=== PATIENT | male | born 1950 | race Caucasian/White ===

== ENCOUNTER → 2017-04-22 | Outpatient (CLI) | payer OTHER ==
[~2017-04-22] MED LIST: CARDIZEM CD120 MG; KETO10TA2 PO; SYNTHROID75 MCG
== END | disposition home or self-care (01) ==
LOC: NUCLEAR 12:53
DX: M81.0 Age-related osteoporosis without current pathological fracture (principal); I10 Essential (primary) hypertension; E03.8 Other specified hypothyroidism; E55.9 Vitamin D deficiency, unspecified; E78.9 Disorder of lipoprotein metabolism, unspecified

== ENCOUNTER 2017-09-01 10:16 | Emergency (ER) | payer OTHER ==
[~2017-09-01] VITALS: Ht 172.7 cm; Wt 83.9 kg
[2017-09-01] MEDS ORDERED: ASPIR 8181 MG (10:43)
[2017-09-01] MEDS ORDERED: ZITHROMAX500 MG PO (13:45)
== END 2017-09-01 13:52 | disposition home or self-care (01) ==
LOC: ER 10:16
DX: B34.9 Viral infection, unspecified (principal); R42 Dizziness and giddiness; J32.8 Other chronic sinusitis

== ENCOUNTER 2017-10-18 09:15 | Outpatient (CLI) | payer OTHER ==
[~2017-10-18 09:15] MED LIST changes: +ASPIR 8181 MG; +ZITHROMAX500 MG PO
== END 2017-10-18 09:49 | disposition home or self-care (01) ==
LOC: SONOGRAMA 09:15
DX: E04.1 Nontoxic single thyroid nodule (principal)

== ENCOUNTER 2017-11-03 08:49 | Outpatient (CLI) | payer OTHER | END 2017-11-03 08:50 | disposition home or self-care (01) | LOC: LAB 08:49 | DX: E56.1 Deficiency of vitamin K (principal) ==

== ENCOUNTER 2017-11-03 09:30 | Outpatient (CLI) | payer OTHER | END 2017-11-03 09:33 | disposition home or self-care (01) | LOC: SONOGRAMA 09:30 | DX: M25.512 Pain in left shoulder (principal) ==

== ENCOUNTER 2017-11-25 09:35 | Outpatient (CLI) | payer OTHER | END 2017-11-25 12:50 | disposition home or self-care (01) | LOC: RAD 501 09:35 | DX: M25.561 Pain in right knee (principal); M25.562 Pain in left knee; M25.551 Pain in right hip ==

== ENCOUNTER 2018-02-11 08:47 | Outpatient (CLI) | payer OTHER | END 2018-02-11 08:50 | disposition home or self-care (01) | LOC: LAB 08:47 | DX: E03.8 Other specified hypothyroidism (principal); E55.9 Vitamin D deficiency, unspecified; E78.89 Other lipoprotein metabolism disorders; N41.1 Chronic prostatitis; I11.9 Hypertensive heart disease without heart failure; B35.3 Tinea pedis ==

== ENCOUNTER 2018-08-19 07:47 | Emergency (ER) | payer OTHER ==
[~2018-08-19] VITALS: Ht 167.6 cm; Wt 83.5 kg
== END 2018-08-19 16:15 | disposition home or self-care (01) ==
LOC: ER 07:47 → CPU-OBS 07:49 → ER 07:49
DX: R07.89 Other chest pain (principal)

== ENCOUNTER 2018-10-07 07:31 | Outpatient (CLI) | payer OTHER | END 2018-10-07 07:36 | disposition home or self-care (01) | LOC: NUCLEAR 07:31 | DX: I11.9 Hypertensive heart disease without heart failure (principal); R07.89 Other chest pain; I25.10 Atherosclerotic heart disease of native coronary artery without angina pectoris | CPT/HCPCS: 78452; 93017; A9500 ==

== ENCOUNTER 2018-12-05 08:13 | Outpatient (CLI) | payer OTHER | END 2018-12-05 14:21 | disposition home or self-care (01) | LOC: SONOGRAMA 08:13 | DX: K76.0 Fatty (change of) liver, not elsewhere classified (principal) ==

== ENCOUNTER 2019-03-14 13:39 | Emergency (ER) | payer OTHER ==
[~2019-03-14] VITALS: Ht 165.1 cm; Wt 81.6 kg
[2019-03-14] MEDS ORDERED: DILTIAZEM ER180 M3 PO (13:55)
[2019-03-14] MEDS ORDERED: OSTERA TABLET1 EACH PO (13:56)
[2019-03-14] MEDS ORDERED: LIPITOR20 MG PO (13:56)
[2019-03-14] MEDS ORDERED: TAMS0.4C PO ×2 (13:56→13:57)
[2019-03-14] MEDS ORDERED: FLONASE16 GM NS (13:57)
== END 2019-03-14 16:17 | disposition home or self-care (01) ==
LOC: ER 13:39
DX: J32.8 Other chronic sinusitis (principal)

== ENCOUNTER 2019-04-18 09:05 | Outpatient (CLI) | payer OTHER ==
[~2019-04-18 09:05] MED LIST changes: +DILTIAZEM ER180 M3 PO; +FLONASE16 GM NS; +LIPITOR20 MG PO; +OSTERA TABLET1 EACH PO; +TAMS0.4C PO
== END 2019-04-18 09:22 | disposition home or self-care (01) ==
LOC: NUCLEAR 09:05
DX: M81.0 Age-related osteoporosis without current pathological fracture (principal); N41.1 Chronic prostatitis; E55.9 Vitamin D deficiency, unspecified; E78.3 Hyperchylomicronemia; E78.49 Other hyperlipidemia; R07.89 Other chest pain; E11.65 Type 2 diabetes mellitus with hyperglycemia; R79.89 Other specified abnormal findings of blood chemistry; E03.8 Other specified hypothyroidism; E78.89 Other lipoprotein metabolism disorders; I11.9 Hypertensive heart disease without heart failure; I25.111 Atherosclerotic heart disease of native coronary artery with angina pectoris with documented spasm

== ENCOUNTER 2019-11-06 13:49 | Emergency (ER) | payer OTHER ==
[~2019-11-06] VITALS: Ht 170.2 cm; Wt 81.6 kg
== END 2019-11-06 19:58 | disposition home or self-care (01) ==
LOC: ER 13:49 → CPU-OBS 14:02 → ER 19:58
DX: R12 Heartburn (principal); R07.89 Other chest pain

== ENCOUNTER 2019-12-05 07:11 | Outpatient (CLI) | payer OTHER | END 2019-12-05 07:19 | disposition home or self-care (01) | LOC: SONOGRAMA 07:11 → MAMO-SONO 07:15 → SONOGRAMA 07:19 | DX: K76.0 Fatty (change of) liver, not elsewhere classified (principal) ==

== ENCOUNTER → 2021-03-13 07:50 | Outpatient (CLI) | payer OTHER | END | disposition home or self-care (01) | LOC: LAB 07:50 | PROVIDERS: ATTEND Internal Medicine | DX: I11.9 Hypertensive heart disease without heart failure (principal); N41.1 Chronic prostatitis; E55.9 Vitamin D deficiency, unspecified; E78.5 Hyperlipidemia, unspecified ==

== ENCOUNTER 2021-07-08 12:19 | Emergency (ER) | payer OTHER ==
[~2021-07-08] VITALS: Ht 170.2 cm; Wt 83.9 kg
[2021-07-08] MEDS ORDERED: TOPROL XL100 M1 (13:15)
[2021-07-08] MEDS ORDERED: TOPROL XL50 M1 (13:15)
== END 2021-07-08 18:14 | disposition home or self-care (01) ==
LOC: ER 12:19
DX: U07.1 COVID-19 (principal); I10 Essential (primary) hypertension

== ENCOUNTER → 2022-05-29 | Outpatient (CLI) | payer OTHER ==
[~2022-05-29] MED LIST changes: +TOPROL XL100 M1; +TOPROL XL50 M1
== END | disposition home or self-care (01) ==
LOC: SONOGRAMA 07:30
DX: K76.0 Fatty (change of) liver, not elsewhere classified (principal)

== ENCOUNTER 2022-07-10 07:42 | Outpatient (CLI) | payer OTHER | END 2022-07-10 07:47 | disposition home or self-care (01) | LOC: SONOGRAMA 07:42 | PROVIDERS: ATTEND Internal Medicine Endocrinology, Diabetes & Metabolism | DX: E04.2 Nontoxic multinodular goiter (principal); R59.0 Localized enlarged lymph nodes ==

== ENCOUNTER 2022-07-16 12:53 | Outpatient (CLI) | payer OTHER | END 2022-07-16 12:56 | disposition home or self-care (01) | LOC: NUCLEAR 12:53 | PROVIDERS: ATTEND Internal Medicine Endocrinology, Diabetes & Metabolism | DX: M85.89 Other specified disorders of bone density and structure, multiple sites (principal); Z13.820 Encounter for screening for osteoporosis ==

== ENCOUNTER 2023-01-09 07:53 | Emergency (ER) | payer OTHER ==
[~2023-01-09] VITALS: Ht 172.7 cm; Wt 83.9 kg
[2023-01-09 10:07] LABS: HEMATOCRIT 41.9 % (39.0-48.0); HEMOGLOBIN 13.6 g/dL (13-16.00); MEAN CORPUSCULAR HEMOGLOBIN 28.6 pg (27.00-32.0); MEAN CORPUSCULAR HGB CONC 32.5 g/dl (32.0-36.0); PLATELET COUNT 138 K/uL (150-450); RED BLOOD COUNT 4.76 M/uL (4.00-6.00); RED CELL DISTRIBUTION WIDTH 13.4 % (11.5-14.5)
[2023-01-09 10:15] LABS: CALCIUM 9.3 mg/dL (8.5-10.1); CREATININE SERUM 0.88 mg/dL (0.70-1.30); GFR 84.65; POTASSIUM 4.62 mEq/L (3.5-5.1)
== END 2023-01-09 10:50 | disposition home or self-care (01) ==
LOC: ER 07:53
PROVIDERS: General Practice
DX: R07.89 Other chest pain (principal); I10 Essential (primary) hypertension

== ENCOUNTER 2024-01-13 07:14 | Outpatient (CLI) | payer OTHER | END 2024-01-13 07:19 | disposition home or self-care (01) | LOC: SONOGRAMA 07:14 | PROVIDERS: ATTEND Urology | DX: N40.0 Benign prostatic hyperplasia without lower urinary tract symptoms (principal) ==

== ENCOUNTER 2024-07-27 12:39 | Outpatient (CLI) | payer OTHER | END 2024-07-27 12:40 | disposition home or self-care (01) | LOC: NUCLEAR 12:39 | PROVIDERS: ATTEND Internal Medicine Endocrinology, Diabetes & Metabolism | DX: M85.89 Other specified disorders of bone density and structure, multiple sites (principal); M81.0 Age-related osteoporosis without current pathological fracture ==

== ENCOUNTER 2024-12-27 11:37 | Outpatient (CLI) | payer OTHER | END 2024-12-27 11:38 | disposition home or self-care (01) | LOC: RAD 11:37 | PROVIDERS: ATTEND Internal Medicine | DX: I11.9 Hypertensive heart disease without heart failure (principal); N41.1 Chronic prostatitis; E55.9 Vitamin D deficiency, unspecified; E78.9 Disorder of lipoprotein metabolism, unspecified; E03.9 Hypothyroidism, unspecified; R79.89 Other specified abnormal findings of blood chemistry; E78.5 Hyperlipidemia, unspecified; E78.3 Hyperchylomicronemia; M19.90 Unspecified osteoarthritis, unspecified site; N40.0 Benign prostatic hyperplasia without lower urinary tract symptoms; N40.1 Benign prostatic hyperplasia with lower urinary tract symptoms ==